=== PATIENT | female | born 1975 | race Two or more races ===

== ENCOUNTER 2018-06-11 11:03 | Emergency (ER) | payer SELFPAY ==
[~2018-06-11] VITALS: Ht 149.9 cm; Wt 54.0 kg
[2018-06-11] MEDS ORDERED: ACETAMINOPHEN 325 MG TABLET PO ONE (11:30)
[2018-06-11 11:38] LABS: BASOPHILS # (AUTO) 0.02 x10^3/uL (0-0.1); BASOPHILS % (AUTO) 0 % (0-1); EOSINOPHILS # (AUTO) 0.06 x10^3/uL (0-0.4); EOSINOPHILS % (AUTO) 1 % (1-7); LYMPHOCYTES # (AUTO) 1.37 x10^3/uL (1-3.4); LYMPHOCYTES % (AUTO) 31 % (22-44); MD NO; MEAN CORPUSCULAR HEMOGLOBIN 30.9 pg (27.0-34.8); MEAN CORPUSCULAR HGB CONC 35.5 g/dL (32.4-35.8); MEAN CORPUSCULAR VOLUME 87.1 fL (80-100); MEAN PLATELET VOLUME 7.7 fL (7.4-10.4); MONOCYTES # (AUTO) 0.33 x10^3/uL (0.2-0.8); MONOCYTES % (AUTO) 8 % (2-9); NEUTROPHILS # (AUTO) 2.69 x10^3/uL (1.8-6.8); NEUTROPHILS % (AUTO) 60 % (42-75); PLATELET COUNT 260 x10^3/uL (130-400); RED BLOOD COUNT 4.31 x10^6/uL (3.82-5.3); RED CELL DISTRIBUTION WIDTH 13.9 % (9.6-15.2)
[2018-06-11 11:50] LABS: ALANINE AMINOTRANSFERASE 21 U/L (12-78); ALBUMIN 3.9 g/dL (3.4-5.0); ANION GAP 10 mmol/L (5-15); CALCIUM 8.5 mg/dL (8.5-10.1); CHLORIDE 108 mmol/L (98-107)
[2018-06-11 11:52] LABS: BILIRUBIN,TOTAL 0.8 mg/dL (0.2-1.0); CREATININE 1.15 mg/dL (0.55-1.02); TOTAL PROTEIN 7.2 g/dL (6.4-8.2)
[2018-06-11 11:53] LABS: ALKALINE PHOSPHATASE 101 U/L (45-117)
[2018-06-11 12:42] LABS: AMPHETAMINE SCREEN, URINE Positive (Negative); BARBITURATE SCREEN, URINE Negative (Negative); BENZODIAZEPINE SCREEN, URINE Negative (Negative); CANNABINOID SCREEN, URINE Negative (Negative); COCAINE SCREEN, URINE Negative (Negative); METHADONE SCREEN, URINE Negative (Negative); OPIATE SCREEN, URINE Negative (Negative)
--- NOTE | 2018-06-11 12:56 | NUR ---
PO FLUIDS CHALLENGE PASSED. 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 PT APPEARS TO BE VERY TIRED. PT STATES SHE IS DIZZY AND MD IS MADE AWARE.
[2018-06-11] MEDS ORDERED: POTASSIUM CHLORIDE 20 MEQ TAB.ER.PRT PO ONE (14:00)
[2018-06-11] MEDS ORDERED: POTASSIUM CHLORIDE 20 MEQ TAB.ER.PRT ONE (14:23)
[2018-06-11] MEDS ORDERED: ACETAMINOPHEN 500 MG TABLET ONE (14:23)
--- NOTE | 2018-06-11 15:22 | NUR ---
PT UNABLE TO ANSWER QUESTIONS OF PRESIDENT, WHICH STATE SHE LIVED IN, WHAT DAY OF THE WEEK IS IT, AND WHAT HOLIDAY JUST PASSED. PT SLEEPING IN BED 3/4 OF MEAL CONSUMED. TOLERATING PO FLUIDS. VSS AT THIS TIME. MADE AWARE.
[2018-06-11 16:18] VITALS: BP 123/67
== END 2018-06-11 16:21 | disposition home or self-care (01) ==
LOC: ED 14:09
DX: R56.9 Unspecified convulsions (principal); R41.82 Altered mental status, unspecified; R51 Headache; R42 Dizziness and giddiness; K21.9 Gastro-esophageal reflux disease without esophagitis
CPT/HCPCS: 36415; 70450; 80053; 80307; 83735; 85025; 93005; 99284

== ENCOUNTER 2018-06-15 11:38 | Inpatient (IN) | payer OTHER ==
[~2018-06-15] VITALS: Ht 149.9 cm; Wt 57.0 kg
[2018-06-15] MEDS ORDERED: INSU100V13 SC (11:56)
[2018-06-15] MEDS ORDERED: MULT1TAB13 PO (11:56)
[2018-06-15] MEDS ORDERED: METF500T17 PO (11:56)
[2018-06-15] MEDS ORDERED: [UNRECOGNIZED DRUG - OTHER] PO (11:56)
[2018-06-15] MEDS ORDERED: EMPA25TA PO (11:56)
[2018-06-15] MEDS ORDERED: ENAL25PO PO (11:56)
[2018-06-15] MEDS ORDERED: ASPI-496 PO (11:56)
[2018-06-15] MEDS ORDERED: LORazepam 2 MG/ML, 1ML IVPush ONE (12:30)
[2018-06-15] MEDS ORDERED: SODIUM CHLORIDE FLUSH 10ML SYR IVF ONE (12:30)
[2018-06-15 12:44] LABS: BASOPHILS # (AUTO) 0.03 x10^3/uL (0-0.1); BASOPHILS % (AUTO) 0 % (0-1); EOSINOPHILS # (AUTO) 0.09 x10^3/uL (0-0.4); EOSINOPHILS % (AUTO) 2 % (1-7); LYMPHOCYTES # (AUTO) 1.47 x10^3/uL (1-3.4); LYMPHOCYTES % (AUTO) 25 % (22-44); MD NO; MEAN CORPUSCULAR HEMOGLOBIN 30.4 pg (27.0-34.8); MEAN CORPUSCULAR HGB CONC 34.6 g/dL (32.4-35.8); MEAN CORPUSCULAR VOLUME 87.7 fL (80-100); MEAN PLATELET VOLUME 7.7 fL (7.4-10.4); MONOCYTES # (AUTO) 0.28 x10^3/uL (0.2-0.8); MONOCYTES % (AUTO) 5 % (2-9); NEUTROPHILS # (AUTO) 4.09 x10^3/uL (1.8-6.8); NEUTROPHILS % (AUTO) 69 % (42-75); PLATELET COUNT 276 x10^3/uL (130-400); RED BLOOD COUNT 4.89 x10^6/uL (3.82-5.3); RED CELL DISTRIBUTION WIDTH 13.8 % (9.6-15.2)
[2018-06-15 12:52] LABS: HCT (SEDRATE) 42.9 % (34.6-47.8)
[2018-06-15 12:56] LABS: ALANINE AMINOTRANSFERASE 21 U/L (12-78); ALBUMIN 3.9 g/dL (3.4-5.0); ANION GAP 6 mmol/L (5-15); CALCIUM 8.7 mg/dL (8.5-10.1); CHLORIDE 107 mmol/L (98-107); CREATININE 0.76 mg/dL (0.55-1.02)
[2018-06-15 13:04] LABS: ALKALINE PHOSPHATASE 103 U/L (45-117); BILIRUBIN,TOTAL 0.6 mg/dL (0.2-1.0); TOTAL PROTEIN 7.5 g/dL (6.4-8.2)
[2018-06-15 14:15] LABS: C-REACTIVE PROTEIN, QUANT 0.03 mg/dL (0.02-0.49)
[2018-06-15] MEDS ORDERED: LORazepam 2 MG/ML, 1ML ONE (14:43)
[2018-06-15] MEDS ORDERED: OMNIPAQUE 350 MG/ML, 100ML BOTTLE ONE (15:38)
[2018-06-15] MEDS ORDERED: ASPIRIN 325 MG TABLET PO ONE (16:30)
[2018-06-15] MEDS ORDERED: NS + 20MEQ KCL 1,000 ML IV SCH (16:50)
[2018-06-15 16:54] LABS: T4 (THYROXINE) 7.2 mcg/dL (4.8-13.9); THYROID STIMULATING HORMONE 0.558 mIU/L (0.358-3.740)
[2018-06-15] MEDS ORDERED: POLYETHYLENE GLYCOL 17 GM PACKET PO PRN (17:00)
[2018-06-15] MEDS ORDERED: DEXTROSE 50%, 50ML SYRINGE IVPush PRN (17:00)
[2018-06-15] MEDS ORDERED: ENALAPRILAT 1.25 MG/ML, 2ML IV PRN (17:00)
[2018-06-15] MEDS ORDERED: DEXTROSE 4 GM TAB.CHEW PO PRN (17:00)
[2018-06-15] MEDS ORDERED: LABETALOL 5MG/ML, 20ML IVPush PRN (17:00)
[2018-06-15] MEDS ORDERED: ONDANSETRON 2MG/ML, 2ML IVPush PRN (17:00)
[2018-06-15] MEDS ORDERED: GLUCAGON 1 MG IM PRN (17:00)
[2018-06-15] MEDS ORDERED: DOCUSATE 100 MG CAPSULE PO PRN (17:00)
[2018-06-15] MEDS ORDERED: hydrALAzine 20 MG/ML, 1ML IV PRN (17:00)
[2018-06-15] MEDS ORDERED: morphine SULFATE 10 MG/ML, 1ML IVPush PRN (17:00)
[2018-06-15] MEDS ORDERED: HYDROcodone/APAP 5/325 TABLET PO PRN (17:00)
[2018-06-15] MEDS ORDERED: ASPIRIN 325 MG TABLET ONE (17:18)
[2018-06-15] MEDS ORDERED: NS + 20MEQ KCL 1,000 ML IV ONE (17:19)
[2018-06-15] MEDS ORDERED: CLOPIDOGREL 300 MG TABLET PO ONE (17:45)
[2018-06-15 17:48] VITALS: BP 120/80
[2018-06-15 18:00] VITALS: BP 120/70
[2018-06-15 19:03] LABS: MICROSCOPIC NOT IND
[2018-06-15 19:11] LABS: CULTURE INDICATED? NO
[2018-06-15 19:14] LABS: AMPHETAMINE SCREEN, URINE Negative (Negative); BARBITURATE SCREEN, URINE Negative (Negative); BENZODIAZEPINE SCREEN, URINE Negative (Negative); CANNABINOID SCREEN, URINE Negative (Negative); COCAINE SCREEN, URINE Negative (Negative); METHADONE SCREEN, URINE Negative (Negative); OPIATE SCREEN, URINE Negative (Negative)
[2018-06-15 19:53] VITALS: BP 122/83
[2018-06-15] MEDS: metFORMIN 500 MG TABLET PO SCH (21:43)
[2018-06-15] MEDS: INSULIN LISPRO 100 UNITS/ML, PEN SQ-INSULIN SCH (21:45)
[2018-06-15] MEDS: FAMOTIDINE 20 MG TABLET PO SCH (21:57)
[2018-06-15] MEDS: ACETAMINOPHEN 325 MG TABLET PO PRN (21:57)
[2018-06-15] MEDS: METHENAMINE HIPPURATE 1 GM TABLET PO SCH (21:57)
[2018-06-15] MEDS: SODIUM CHLORIDE FLUSH 10ML SYR IVF SCH (22:01)
[2018-06-16 01:46] VITALS: BP 113/75
[2018-06-16] MEDS: ACETAMINOPHEN 325 MG TABLET PO PRN ×2 (05:19→09:22)
[2018-06-16 07:15] VITALS: BP 123/82
[2018-06-16] MEDS: metFORMIN 500 MG TABLET PO SCH (07:53)
[2018-06-16] MEDS: INSULIN LISPRO 100 UNITS/ML, PEN SQ-INSULIN SCH ×3 (08:15→17:16)
[2018-06-16] MEDS: FAMOTIDINE 20 MG TABLET PO SCH (08:56)
[2018-06-16] MEDS: METHENAMINE HIPPURATE 1 GM TABLET PO SCH (08:56)
[2018-06-16] MEDS: SODIUM CHLORIDE FLUSH 10ML SYR IVF SCH (08:56)
[2018-06-16] MEDS ORDERED: ENALAPRIL 10 MG TABLET PO SCH (09:00)
[2018-06-16] MEDS ORDERED: INSULIN GLARGINE 100 UNITS/ML, PEN SQ-INSULIN SCH (09:00)
[2018-06-16] MEDS ORDERED: CLOPIDOGREL 75 MG TABLET PO SCH (09:00)
[2018-06-16 12:52] VITALS: BP 107/67
[2018-06-16] MEDS ORDERED: ASPI325T17 PO (14:36)
[2018-06-16] MEDS ORDERED: CLOP75TA PO (14:36)
== END 2018-06-16 18:29 | disposition home or self-care (01) | DRG 301 ==
LOC: ED 12:19 → EDIP 16:28 → SUATTDRO 16:44 → 4WST 17:41
PROVIDERS: ADMIT Family Medicine; ATTEND Family Medicine
DX: I77.71 Dissection of carotid artery (principal); E11.9 Type 2 diabetes mellitus without complications; F15.10 Other stimulant abuse, uncomplicated; F17.210 Nicotine dependence, cigarettes, uncomplicated; I10 Essential (primary) hypertension; K21.9 Gastro-esophageal reflux disease without esophagitis; Z90.49 Acquired absence of other specified parts of digestive tract
CPT/HCPCS: 36415; 70498; 70544; 70549; 70553; 80053; 80307; 81003; 82962; 84436; 84443; 84703; 85025; 85651; 86140; 93005; 96374; 96375; G0378; J3480; Q9967; 92523-GN; J1815; J2060

== ENCOUNTER 2018-06-18 16:14 | Emergency (ER) | payer SELFPAY ==
[~2018-06-18] VITALS: Ht 149.9 cm; Wt 59.0 kg
[~2018-06-18 16:14] MED LIST: ASPI-496 PO; ASPI325T17 PO; CLOP75TA PO; EMPA25TA PO; ENAL25PO PO; INSU100V13 SC; METF500T17 PO; MULT1TAB13 PO; [UNRECOGNIZED DRUG - OTHER] PO
--- NOTE | 2018-06-18 16:56 | NUR ---
patient safe in bed, accompanied by daughter, reports "burning" sensation with headache in R side of head. some associated pains to R neck and shoulder. patient has discharge paperwork form 06/15/18 from [facility] Ramez admitted her, carotid artery dissection was diagnosis.
[2018-06-18 17:27] LABS: BASOPHILS # (AUTO) 0.04 x10^3/uL (0-0.1); BASOPHILS % (AUTO) 1 % (0-1); EOSINOPHILS # (AUTO) 0.06 x10^3/uL (0-0.4); EOSINOPHILS % (AUTO) 1 % (1-7); LYMPHOCYTES # (AUTO) 1.89 x10^3/uL (1-3.4); LYMPHOCYTES % (AUTO) 28 % (22-44); MD NO; MEAN CORPUSCULAR HEMOGLOBIN 30.8 pg (27.0-34.8); MEAN CORPUSCULAR VOLUME 87.8 fL (80-100); MEAN PLATELET VOLUME 7.8 fL (7.4-10.4); MONOCYTES # (AUTO) 0.42 x10^3/uL (0.2-0.8); MONOCYTES % (AUTO) 6 % (2-9); NEUTROPHILS # (AUTO) 4.38 x10^3/uL (1.8-6.8); NEUTROPHILS % (AUTO) 64 % (42-75); PLATELET COUNT 258 x10^3/uL (130-400); RED BLOOD COUNT 4.25 x10^6/uL (3.82-5.3); RED CELL DISTRIBUTION WIDTH 14.1 % (9.6-15.2)
[2018-06-18 17:29] LABS: ALANINE AMINOTRANSFERASE 25 U/L (12-78); ALBUMIN 3.6 g/dL (3.4-5.0); ANION GAP 5 mmol/L (5-15); CALCIUM 8.5 mg/dL (8.5-10.1); CHLORIDE 110 mmol/L (98-107); CREATININE 0.84 mg/dL (0.55-1.02)
[2018-06-18 17:31] LABS: ALKALINE PHOSPHATASE 93 U/L (45-117); BILIRUBIN,TOTAL 0.5 mg/dL (0.2-1.0); TOTAL PROTEIN 7.1 g/dL (6.4-8.2)
[2018-06-18 17:44] LABS: BASOPHILS # (AUTO) 0.04 x10^3/uL (0-0.1); BASOPHILS % (AUTO) 1 % (0-1); EOSINOPHILS # (AUTO) 0.08 x10^3/uL (0-0.4); EOSINOPHILS % (AUTO) 1 % (1-7); LYMPHOCYTES % (AUTO) 27 % (22-44); MD NO; MEAN CORPUSCULAR HEMOGLOBIN 30.8 pg (27.0-34.8); MEAN CORPUSCULAR HGB CONC 35.4 g/dL (32.4-35.8); MEAN PLATELET VOLUME 7.9 fL (7.4-10.4); MONOCYTES # (AUTO) 0.44 x10^3/uL (0.2-0.8); MONOCYTES % (AUTO) 7 % (2-9); NEUTROPHILS # (AUTO) 4.28 x10^3/uL (1.8-6.8); NEUTROPHILS % (AUTO) 65 % (42-75); PLATELET COUNT 251 x10^3/uL (130-400); RED BLOOD COUNT 4.11 x10^6/uL (3.82-5.3); RED CELL DISTRIBUTION WIDTH 13.8 % (9.6-15.2)
--- NOTE | 2018-06-18 18:00 | NUR ---
IV started, patient reports no acute worsening, going to CT scan now via [email or web address].
[2018-06-18] MEDS ORDERED: OMNIPAQUE 350 MG/ML, 100ML BOTTLE ONE (18:44)
--- NOTE | 2018-06-18 18:53 | NUR ---
PT REPORT FROM LEONCIO COVARRUBIAS. THIS RN TO ASSUME CARE OF PT. PT RESTING COMFORTABLY ON GURNEY. NADN. VSS. CALL LIGHT WITHIN REACH.
[2018-06-18 19:24] VITALS: BP 113/59
--- NOTE | 2018-06-18 19:28 | NUR ---
ALL RESULTS BACK. PT UP FOR RECHECK.
[2018-06-18] MEDS ORDERED: IBUPROFEN 600 MG TABLET ONE (19:59)
[2018-06-18] MEDS ORDERED: ACETAMINOPHEN 500 MG TABLET ONE (19:59)
[2018-06-18] MEDS ORDERED: IBUPROFEN 200 MG TABLET PO ONE (20:00)
[2018-06-18] MEDS ORDERED: ACETAMINOPHEN 500 MG TABLET PO ONE (20:00)
== END 2018-06-18 20:06 | disposition home or self-care (01) ==
LOC: ED 19:28
DX: R51 Headache (principal); M54.2 Cervicalgia; K21.9 Gastro-esophageal reflux disease without esophagitis; Z90.49 Acquired absence of other specified parts of digestive tract
CPT/HCPCS: 36415; 70496; 70498; 80047; 80053; 85025; 93005; 99284; Q9967

== ENCOUNTER 2018-07-12 02:35 | Emergency (ER) | payer OTHER ==
[~2018-07-12] VITALS: Ht 149.9 cm; Wt 60.0 kg
--- NOTE | 2018-07-12 02:47 | NUR ---
HX DIABETES PER PREVIOUS REPORT, PT STATES THAT SHE IS ONLY TAKING ASA AND PLAVIX, INSULIN ON PREVIOUS MED REC.
--- NOTE | 2018-07-12 02:51 | NUR ---
SMALL INTIMAL FLAP AT THE ORIGIN OF THE RIGHT INTERNAL CAROTID ARTERY IS CONSISTENT WITH A DISSECTION. READ FROM 06/15/18
[2018-07-12] MEDS ORDERED: PROCHLORPERAZINE 5 MG/ML, 2ML IVPush ONE (03:00)
[2018-07-12] MEDS ORDERED: MORPHINE SULFATE 4 MG/ML, 1ML IVPush PRN (03:00)
[2018-07-12] MEDS ORDERED: SODIUM CHLORIDE FLUSH 10ML SYR IVF ONE (03:00)
[2018-07-12] MEDS ORDERED: DIPHENHYDRAMINE 50 MG/ML, 1ML IVPush ONE (03:00)
[2018-07-12] MEDS ORDERED: DIPHENHYDRAMINE 50 MG/ML, 1ML ONE (03:06)
[2018-07-12] MEDS ORDERED: PROCHLORPERAZINE 5 MG/ML, 2ML ONE (03:06)
[2018-07-12] MEDS ORDERED: MORPHINE SULFATE 4 MG/ML, 1ML ONE (03:07)
[2018-07-12 03:15] LABS: BASOPHILS # (AUTO) 0.04 x10^3/uL (0-0.1); BASOPHILS % (AUTO) 1 % (0-1); EOSINOPHILS # (AUTO) 0.23 x10^3/uL (0-0.4); EOSINOPHILS % (AUTO) 4 % (1-7); LYMPHOCYTES # (AUTO) 2.15 x10^3/uL (1-3.4); LYMPHOCYTES % (AUTO) 35 % (22-44); MD NO; MEAN CORPUSCULAR HGB CONC 35.2 g/dL (32.4-35.8); MEAN CORPUSCULAR VOLUME 88.2 fL (80-100); MONOCYTES # (AUTO) 0.46 x10^3/uL (0.2-0.8); MONOCYTES % (AUTO) 7 % (2-9); NEUTROPHILS # (AUTO) 3.34 x10^3/uL (1.8-6.8); NEUTROPHILS % (AUTO) 54 % (42-75); PLATELET COUNT 227 x10^3/uL (130-400); RED BLOOD COUNT 4.32 x10^6/uL (3.82-5.3)
--- NOTE | 2018-07-12 03:21 | NUR ---
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 PT STATES HX OF DISSECTED CAROTID ARTERY. PT DENIES ANY VISION LOSS W/ CARBAJAL, BUT STATES PHOTOPHOBIA. THIS RN INITIATED IV AND GAVE MEDICATIONS PER JUL. PT STATES AN INSTANT RELIEF FROM MEDS AND STATES "THANK YOU" AFTER ADMIN. ALL MONITORING APPLIED. VSS. CALL LIGHT WITHIN REACH. FAMILY AT BEDSIDE.
[2018-07-12 03:23] LABS: ALANINE AMINOTRANSFERASE 65 U/L (12-78); ALBUMIN 3.8 g/dL (3.4-5.0); ANION GAP 9 mmol/L (5-15); CALCIUM 8.2 mg/dL (8.5-10.1); CHLORIDE 108 mmol/L (98-107); CREATININE 0.82 mg/dL (0.55-1.02)
[2018-07-12 03:25] LABS: ALKALINE PHOSPHATASE 99 U/L (45-117); BILIRUBIN,TOTAL 0.6 mg/dL (0.2-1.0); TOTAL PROTEIN 6.9 g/dL (6.4-8.2)
[2018-07-12] MEDS ORDERED: OMNIPAQUE 350 MG/ML, 100ML BOTTLE ONE (04:09)
[2018-07-12 04:24] VITALS: BP 115/71
== END 2018-07-12 05:11 ==
LOC: ED 03:00
DX: R51 Headache (principal); K21.9 Gastro-esophageal reflux disease without esophagitis
CPT/HCPCS: 36415; 70450; 70496; 70498; 80053; 82962; 85025; 96374; 96375; 99284; J0780; J1200; Q9967

== ENCOUNTER 2018-07-14 00:42 | Emergency (ER) | payer OTHER ==
[~2018-07-14] VITALS: Ht 180.3 cm; Wt 62.1 kg
[2018-07-14 00:46] VITALS: BP 177/79
[2018-07-14] MEDS ORDERED: LORazepam 1MG TABLET ONE (01:13)
[2018-07-14] MEDS ORDERED: LORazepam 1MG TABLET PO ONE (01:30)
--- NOTE | 2018-07-14 01:30 | NUR ---
TASK RN: DC EDUCATION PROVIDED, PT DEMONSTRATES UNDERSTANDING. PT AMBULATED STEADILY TO DC WITH RN AND SO. SO TO TRANSPORT PT HOME
== END 2018-07-14 01:32 | disposition home or self-care (01) ==
LOC: ED 01:18
DX: S15.001A Unspecified injury of right carotid artery, initial encounter (principal); K21.9 Gastro-esophageal reflux disease without esophagitis; Z90.49 Acquired absence of other specified parts of digestive tract; X58.XXXA Exposure to other specified factors, initial encounter; Y93.89 Activity, other specified; Y92.89 Other specified places as the place of occurrence of the external cause; Y99.8 Other external cause status
CPT/HCPCS: 93005; 99283